=== PATIENT | male | born 1965 | race Hispanic/Latino ===

== ENCOUNTER 2021-02-27 10:59 | Outpatient (CLI) | payer SELFPAY | END 2021-02-27 11:00 | disposition home or self-care (01) | LOC: MADLAB 10:59 | PROVIDERS: ATTEND Physician Assistant | DX: M54.2 Cervicalgia (principal); M25.551 Pain in right hip; M25.552 Pain in left hip; M47.812 Spondylosis without myelopathy or radiculopathy, cervical region | CPT/HCPCS: 72040 ==